=== PATIENT | male | born 1990 | race Two or more races ===

== ENCOUNTER 2024-08-05 16:04 | Emergency (ER) | payer MEDICAID, MEDICARE ==
[~2024-08-05] VITALS: Ht 167.6 cm; Wt 59.0 kg
[2024-08-05 16:22] VITALS: BP 131/85; PULSE 69; RESP 16; TEMP 98.4; O2SAT 100
== END 2024-08-05 17:00 | disposition left against medical advice (07) ==
LOC: ER 16:04
DX: R05.9 Cough, unspecified (principal); Z53.21 Procedure and treatment not carried out due to patient leaving prior to being seen by health care provider